=== PATIENT | female | born 1975 | race Two or more races ===

== ENCOUNTER → 2016-10-23 08:31 | Day surgery (SDC) | payer OTHER ==
[~2016-10-23 08:31] MED LIST: Buffered Lidocaine 1% SYRIN* 3 ML/SYR SYRINGE INTRADERM ONE; DOXYcycline CAP(*) 100 MG PO ONE; DiMENhydriNATE IV* 50 MG/ML VIAL IV PUSH ONE; DiMENhydriNATE IV* 50 MG/ML VIAL IV PUSH PRN; DiMENhydriNATE IV* 50 MG/ML VIAL ONE; Famotidine IV* 10 MG/ML 2 ML (20 mg) IV ONE; Famotidine IV* 10 MG/ML 2 ML (20 mg) ONE; HYDROmorphone* 1 MG/ML 1 ML SYR ONE; Ketorolac INJ* 30 MG/ML 1 ML VIAL ONE; Lidocaine 2% PF* 5 ML VIAL ONE; Midazolam* 1 MG/ML 2 ML VIAL (2 MG) ONE; Misoprostol TAB* 200 MCG ONE; Ondansetron INJ* 2 MG/ML VIAL IV ONE; Ondansetron INJ* 2 MG/ML VIAL IV PRN; Ondansetron INJ* 2 MG/ML VIAL ONE; PROCHLORPERAZINE INJ 5 MG/ML 2 ML VIAL IV PRN; Propofol* 10 MG/ML 20 ML BTL IV PUSH ONE; Scopolamine 1.5 mg* PATCH ONE; Scopolamine 1.5 mg* PATCH TRANSDERM SCH; Scopolomine PATCH Remove* 1 NOTE MISC PATCH OFF ONE; fentaNYL* 50 MCG/ML 2 ML VIAL (100 MCG VIAL) IV PRN; fentaNYL* 50 MCG/ML 2 ML VIAL (100 MCG VIAL) ONE
[2016-10-23 09:21] LABS: Hematocrit 40 % (35-47); Hemoglobin 13.9 g/dl (12.0-16.0); Mean Corpuscular HGB Conc 35 g/dl (31-36); Mean Corpuscular Hemoglobin 28 pg (27-31); Mean Corpuscular Volume 80 fL (80-97); Mean Platelet Volume 8 um3 (7.4-10.4); Red Blood Count 4.97 10^6/ul (4.0-5.4); Red Cell Distribution Width 14 % (10.5-15); White Blood Count 5.7 10^3/ul (3.5-10.8)
[2016-10-23 11:46] VITALS: BP 116/74
--- NOTE | 2016-10-24 02:28 | OP ---
OPERATIVE REPORT: DATE OF OPERATION: 10/23/16 DATE OF : 71 SURGEON: Dr. Bhavana Yarbrough. ANESTHESIOLOGIST: Dr. Villegas. ANESTHESIA: General endotracheal. PRE-OP DIAGNOSIS: Intrauterine , missed at 8 weeks and 5/7th days. POST-OP DIAGNOSIS: Intrauterine , missed at 8 weeks and 5/7th days. OPERATIVE PROCEDURE: Dilation, evacuation, and curettage. ESTIMATED BLOOD LOSS: 100 cc. URINE OUTPUT: 100 cc of yellow urine. FLUIDS: 1500 cc of crystalloid. FINDINGS: Revealed intrauterine contents consistent with products of conception, crying uterus x4 q uadrants. COMPLICATIONS: None apparent. DISPOSITION: Stable to recovery room. DESCRIPTION OF PROCEDURE: The patient was placed in dorsal lithotomy position. The perineum and vag shaan were prepped and draped in a sterile standard fashion. The patient was identified with [facility] protocol for correct procedure, position and patient. The Self-Cath was inserted for drainage of clear yellow urine. A speculum was inserted and the cervix was grasped on the anterior lip of the s sara- tooth tenaculum and dilated to #9 Hegar dilator. An 8 mm curved suction curette was then booker lied for complete evacuation of the endometrial contents. A sharp curettage was then performed reve aling complete evacuation of the intrauterine contents with cry of the uterus heard in all 4 quadran ts. Single-tooth tenaculum was removed. Sterile speculum was removed. Misoprostol 800 mcg was doreen betty intravaginally. Minimal bleeding was noted. The patient was then taken out of [place] [employer] stirrups and taken to recovery room in stable condition. All sponge, needle, instrument and blad e counts were correct throughout the case. The patient tolerated the procedure well and went to rec overy room in stable condition. [id number]/[facility] #: [id number]
== END | disposition home or self-care (01) ==
LOC: OR 08:31
PROVIDERS: ATTEND Obstetrics & Gynecology
DX: O02.1 Missed abortion (principal); G35 Multiple sclerosis
CPT/HCPCS: 36415; 85025; 86850; 86900; 86901; 88305; A9270-GY; J1170; J1240; J1885; J2250; J2405; J2704; J3010